=== PATIENT | female | born 1980 | race Caucasian/White ===

== ENCOUNTER → 2016-06-14 | Outpatient (REF) | payer OTHER ==
[~2016-06-14] MED LIST: ADVI200T PO
== END ==
LOC: M SFHCLERA 19:07
PROVIDERS: ATTEND Nurse Practitioner Family
DX: R30.0 Dysuria (principal)
CPT/HCPCS: 87088; 87186; 87491; 87591; G0463

== ENCOUNTER 2020-08-02 20:28 | Emergency (ER) | payer OTHER ==
[~2020-08-02] VITALS: Ht 17.8 cm; Wt 104.5 kg
[2020-08-02] MEDS ORDERED: NAPR-885 PO (20:38)
[2020-08-02] MEDS ORDERED: DULO1CAP5 PO (20:38)
[2020-08-02] MEDS ORDERED: IBUPROFEN 800 MG TAB PO ONE (20:55)
[2020-08-02] MEDS ORDERED: ACETAMINOPHEN 500 MG TAB PO ONE (20:55)
--- NOTE | 2020-08-02 21:59 | REPVR ---
PROCEDURE INFORMATION: Exam: XR Right Foot Exam date and time: 08/02/2020 8:54 PM Age: 39 years old Clinical indication: Pain; Foot; Right; Additional info: Inversion, swelling lateral ankle, PT tender lateral foot TECHNIQUE: Imaging protocol: XR Right foot. Views: 3 or more views. COMPARISON: No relevant prior studies available. FINDINGS: Bones/joints: Small plantar calcaneal spur. Tiny avulsion fracture from the tip of the fibula. Tiny fracture fragment or ossicle due on the lateral view within the retro talar soft tissue. Midfoot and forefoot bones are intact. Mild degenerative joint disease. Soft tissues: Lateral ankle soft tissue swelling. IMPRESSION: 1. Tiny avulsion fracture from the tip of the fibula. 2. Tiny fracture fragment or ossicle due on the lateral view within the retro talar soft tissue. Electronically signed by: Eusebio Rich On 08/02/2020 21:58:49 PM
--- NOTE | 2020-08-02 22:00 | REPVR ---
PROCEDURE INFORMATION: Exam: XR Right Ankle Exam date and time: 08/02/2020 8:54 PM Age: 39 years old Clinical indication: Pain; Ankle; Right; Additional info: Inversion, swelling lateral ankle, PT tender lateral foot TECHNIQUE: Imaging protocol: XR Right ankle. Views: 3 or more views. COMPARISON: No relevant prior studies available. FINDINGS: Bones/joints: Small plantar calcaneal spur. Tiny avulsion fracture from the tip of the fibula. Tiny fracture fragment or ossicle due on the lateral view within the retro talar soft tissue. Midfoot and forefoot bones are intact. Mild degenerative joint disease. Questionable nondisplaced linear fracture through the distal fibula, extending above the ankle mortise. Soft tissues: Lateral ankle soft tissue swelling. IMPRESSION: 1. Tiny avulsion fracture from the tip of the fibula. 2. Tiny fracture fragment or ossicle due on the lateral view within the retro talar soft tissue. 3. Questionable nondisplaced linear fracture through the distal fibula, extending above the ankle mortise. Electronically signed by: Eusebio Rich On 08/02/2020 22:00:05 PM
[2020-08-02 23:00] VITALS: BP 135/73
== END 2020-08-02 23:02 | disposition home or self-care (01) ==
LOC: M ED 20:28
DX: S82.831A Other fracture of upper and lower end of right fibula, initial encounter for closed fracture (principal); W17.89XA Other fall from one level to another, initial encounter; Y92.098 Other place in other non-institutional residence as the place of occurrence of the external cause; Y93.89 Activity, other specified; Y99.8 Other external cause status; Z88.5 Allergy status to narcotic agent; Z88.8 Allergy status to other drugs, medicaments and biological substances; Z79.899 Other long term (current) drug therapy

== ENCOUNTER → 2022-01-10 | Outpatient (REF) | payer OTHER ==
[~2022-01-10] MED LIST changes: +DULO1CAP5 PO; +NAPR-885 PO
== END ==
LOC: M LAB REF 14:41
PROVIDERS: ATTEND Physician Assistant Medical
DX: R53.83 Other fatigue (principal)

== ENCOUNTER → 2022-07-23 | Outpatient (CLI) | payer OTHER | LOC: M SLEEP 20:00 | PROVIDERS: ATTEND Nurse Practitioner Family | DX: G47.33 Obstructive sleep apnea (adult) (pediatric) (principal) ==

== ENCOUNTER → 2023-02-21 | Outpatient (CLI) | payer OTHER | LOC: M SLEEP 20:00 | PROVIDERS: ATTEND Nurse Practitioner Family | DX: G47.33 Obstructive sleep apnea (adult) (pediatric) (principal) ==

== ENCOUNTER → 2024-06-29 | Outpatient (CLI) | payer OTHER | LOC: M SOG 07:55 | PROVIDERS: ATTEND Physician Assistant | DX: M23.000 Cystic meniscus, unspecified lateral meniscus, right knee (principal) ==

== ENCOUNTER → 2025-01-11 | Outpatient (CLI) | payer OTHER | LOC: M SOG 13:00 | PROVIDERS: ATTEND Orthopaedic Surgery | DX: M25.532 Pain in left wrist (principal) ==

== ENCOUNTER → 2025-01-25 | Outpatient (CLI) | payer OTHER | LOC: M SOG 06:46 | PROVIDERS: ATTEND Orthopaedic Surgery | DX: M25.532 Pain in left wrist (principal) ==